=== PATIENT | female | born 1950 | race African-American/Black ===

== ENCOUNTER 2020-04-15 23:22 | Emergency (ER) | payer MEDICARE ==
[~2020-04-15] VITALS: Ht 165.1 cm; Wt 90.7 kg
[~2020-04-15 23:22] MED LIST: CITALOPRAM HBR40 MG PO; LEVOTHYROXINE75 MCG PO; LOSARTAN-HCTZ1 EAC2 PO; NEXIUM40 M1 PO; ZOLPIDEM TARTRA10 MG PO
[2020-04-16] MEDS ORDERED: ONDANSETRON HCL 4 MG ORAL DISINTEGRATING TAB PO ONE (00:15)
== END 2020-04-16 00:37 | disposition home or self-care (01) ==
LOC: ER 04-16 00:20
DX: M79.622 Pain in left upper arm (principal); T50.B95A Adverse effect of other viral vaccines, initial encounter; I10 Essential (primary) hypertension; E03.9 Hypothyroidism, unspecified
CPT/HCPCS: 99283; Q0162

== ENCOUNTER 2020-09-18 21:23 | Emergency (ER) | payer MEDICARE ==
[~2020-09-18] VITALS: Ht 165.1 cm; Wt 90.7 kg
[2020-09-18] MEDS ORDERED: DEXAMETHASONE SOD PHOS 10 MG/1 ML VIAL IV ONE (22:15)
[2020-09-18] MEDS ORDERED: GUAIFENESIN/DEXTROMETHORPHAN LIQD 5 ML UDC PO PRN (22:15)
[2020-09-18 22:19] LABS: BASOPHILS # (AUTO) 0.1 (0.0-0.1); BASOPHILS % 0.8 % (0.0-1.0); EOSINOPHILS # (AUTO) 1.1 (0.0-0.4); EOSINOPHILS % 9.3 % (0.0-6.0); HEMATOCRIT 36.8 % (34.2-44.1); HEMOGLOBIN 11.5 g/dL (12.0-16.0); LYMPHOCYTES # (AUTO) 2.8 (1.0-3.2); LYMPHOCYTES % 24.7 % (18.0-39.1); MEAN CORPUSCULAR HEMOGLOBIN 27.1 pg (28-32); MEAN CORPUSCULAR HGB CONC 31.3 g/dL (31-35); MEAN CORPUSCULAR VOLUME 86.6 fL (81-99); MONOCYTES # (AUTO) 0.6 (0.2-0.8); MONOCYTES % 5.7 % (4.4-11.3); NEUTROPHILS # (AUTO) 6.7 (2.1-6.9); NEUTROPHILS % 59.1 % (38.7-80.0); PLATELET COUNT 289 x10e3/uL (140-360); RED BLOOD COUNT 4.25 x10e6/uL (3.6-5.1); RED CELL DISTRIBUTION WIDTH 13.3 % (11.7-14.4)
[2020-09-18 22:33] LABS: ALANINE AMINOTRANSFERASE 10 IU/L (0-55); ALBUMIN 3.9 g/dL (3.5-5.0); ALBUMIN/GLOBULIN RATIO 1.2 (0.8-2.0); ALKALINE PHOSPHATASE 68 IU/L (40-150); ANION GAP 13.8 mmol/L (8-16); BLOOD UREA NITROGEN 16 mg/dL (7-26); BUN/CREATININE RATIO 16 (6-25); CALCIUM 8.8 mg/dL (8.4-10.2); CARBON DIOXIDE 26 mmol/L (22-29); CHLORIDE 102 mmol/L (98-107); CREATINE KINASE 74 IU/L (29-168); EST GLOMERULAR FILTRATION RATE > 60 ML/MIN (60-); GLUCOSE 99 mg/dL (74-118); POTASSIUM 3.8 mmol/L (3.5-5.1); SODIUM 138 mmol/L (136-145)
[2020-09-19] MEDS ORDERED: SODIUM CHLORIDE 0.9% 50ML 50 ML ONE (02:38)
[2020-09-19] MEDS ORDERED: IOPAMIDOL 370 MG/ML 200 ML INFUS..BTL INJ ONE (02:38)
[2020-09-19] MEDS ORDERED: TESSALON PERLE100 MG PO (04:59)
[2020-09-19] MEDS ORDERED: AZITHROMYCIN250 MG PO (04:59)
[2020-09-19] MEDS ORDERED: PREDNISONE20 MG PO (04:59)
[2020-09-19 05:23] VITALS: BP 170/86
== END 2020-09-19 05:15 | disposition home or self-care (01) ==
LOC: ER 21:45
DX: J40 Bronchitis, not specified as acute or chronic (principal); R05 Cough; R06.02 Shortness of breath; I10 Essential (primary) hypertension; E03.9 Hypothyroidism, unspecified
CPT/HCPCS: 36415; 71045; 71260; 80053; 82550; 82553; 83880; 84484; 85025; 93005; 99284; J1100; Q9967

== ENCOUNTER 2022-10-21 20:09 | Inpatient (IN) | payer MEDICARE ==
[~2022-10-21] VITALS: Ht 165.1 cm; Wt 89.0 kg
[~2022-10-21 20:09] MED LIST changes: +AZITHROMYCIN250 MG PO; +PREDNISONE20 MG PO; +TESSALON PERLE100 MG PO
[2022-10-21] MEDS ORDERED: ONDANSETRON HCL INJ 2MG/ML 2ML 2 MG/ML VIAL IV STA (20:41)
[2022-10-21] MEDS ORDERED: SODIUM CHLORIDE 0.9% 1000ML 1,000 ML IV ONE (20:45)
[2022-10-21 20:59] LABS: BASOPHILS # (AUTO) 0.1 (0.0-0.1); BASOPHILS % 0.4 % (0.0-1.0); EOSINOPHILS % 0.1 % (0.0-6.0); HEMOGLOBIN 11.1 g/dL (12.0-16.0); LYMPHOCYTES # (AUTO) 0.8 (1.0-3.2); LYMPHOCYTES % 4.5 % (18.0-39.1); MEAN CORPUSCULAR HEMOGLOBIN 26.9 pg (28-32); MEAN CORPUSCULAR HGB CONC 32.6 g/dL (31-35); MEAN CORPUSCULAR VOLUME 82.5 fL (81-99); MONOCYTES # (AUTO) 0.8 (0.2-0.8); MONOCYTES % 4.2 % (4.4-11.3); NEUTROPHILS # (AUTO) 16.1 (2.1-6.9); PLATELET COUNT 247 x10e3/uL (140-360); RED BLOOD COUNT 4.12 x10e6/uL (3.6-5.1); RED CELL DISTRIBUTION WIDTH 13.4 % (11.7-14.4)
[2022-10-21 21:14] LABS: ALANINE AMINOTRANSFERASE 24 IU/L (0-55); ALBUMIN/GLOBULIN RATIO 0.8 (0.8-2.0); ALKALINE PHOSPHATASE 111 IU/L (40-150); ANION GAP 17.6 mmol/L (8-16); BLOOD UREA NITROGEN 22 mg/dL (7-26); BUN/CREATININE RATIO 14 (6-25); CALCIUM 9.1 mg/dL (8.4-10.2); CARBON DIOXIDE 22 mmol/L (22-29); CHLORIDE 97 mmol/L (98-107); CREATINE KINASE 58 IU/L (29-168); CREATININE, SERUM 1.56 mg/dL (0.57-1.11); GLUCOSE 116 mg/dL (74-118); POTASSIUM 3.6 mmol/L (3.5-5.1); SODIUM 133 mmol/L (136-145)
[2022-10-21 21:21] LABS: CLARITY,URINE CLOUDY (CLEAR); COLOR,URINE YELLOW (YELLOW); KETONES,URINE 1+ (NEGATIVE); LEUKOCYTE ESTERASE ,URINE MODERATE (NEGATIVE); NITRITE,URINE NEGATIVE (NEGATIVE); PROTEIN,URINE DIPSTICK >=300 (NEGATIVE); URINE UROBILINOGEN 1 mg/dL (0.2 - 1)
[2022-10-21 21:32] LABS: WBC,URINE (MAN) >50 /HPF (0-5)
[2022-10-21 21:33] LABS: BACTERIA,URINE MANY /HPF; EPITHELIAL CELLS,URINE MANY /LPF; RBC,URINE >50 /HPF (0-5)
[2022-10-21] MEDS ORDERED: ACETAMINOPHEN 325 MG TAB PO ONE (22:00)
[2022-10-21] MEDS ORDERED: ONDANSETRON HCL INJ 2MG/ML 2ML 2 MG/ML VIAL IV PRN (23:00)
[2022-10-21] MEDS: SODIUM CHLORIDE 0.9% 1000ML 1,000 ML IV SCH (23:33)
[2022-10-22 05:23] LABS: BASOPHILS # (AUTO) 0.1 (0.0-0.1); BASOPHILS % 0.5 % (0.0-1.0); EOSINOPHILS # (AUTO) 0.1 (0.0-0.4); HEMOGLOBIN 9.1 g/dL (12.0-16.0); LYMPHOCYTES # (AUTO) 0.8 (1.0-3.2); LYMPHOCYTES % 5.9 % (18.0-39.1); MEAN CORPUSCULAR HEMOGLOBIN 27.1 pg (28-32); MEAN CORPUSCULAR HGB CONC 32.5 g/dL (31-35); MEAN CORPUSCULAR VOLUME 83.3 fL (81-99); MONOCYTES # (AUTO) 0.8 (0.2-0.8); NEUTROPHILS # (AUTO) 10.8 (2.1-6.9); NEUTROPHILS % 85.2 % (38.7-80.0); PLATELET COUNT 170 x10e3/uL (140-360); RED BLOOD COUNT 3.36 x10e6/uL (3.6-5.1); RED CELL DISTRIBUTION WIDTH 13.6 % (11.7-14.4)
[2022-10-22 05:40] LABS: ALBUMIN 2.2 g/dL (3.5-5.0); ALBUMIN/GLOBULIN RATIO 0.8 (0.8-2.0); ANION GAP 12.7 mmol/L (8-16); CALCIUM 7.8 mg/dL (8.4-10.2); CREATININE, SERUM 1.42 mg/dL (0.57-1.11); POTASSIUM 3.7 mmol/L (3.5-5.1)
[2022-10-22] MEDS: SODIUM CHLORIDE 0.9% 1000ML 1,000 ML IV SCH ×3 (08:13→19:30)
[2022-10-22] MEDS: HYDROCHLOROTHIAZIDE 25 MG TAB PO SCH (12:18)
[2022-10-22] MEDS: LOSARTAN POTASSIUM 100 MG TAB PO SCH (12:18)
[2022-10-22] MEDS: ENOXAPARIN SOD INJ 40 MG/0.4 ML SYR SC SCH (12:20)
[2022-10-22] MEDS: ACETAMINOPHEN 325 MG TAB PO PRN ×2 (12:27→19:56)
[2022-10-22] MEDS ORDERED: ALBUTEROL SULFATE HFA 8GM INHALATION AEROSOL INH PRN (12:45)
[2022-10-22 14:30] VITALS: BP 139/75
[2022-10-22] MEDS ORDERED: DIOVAN160 MG PO (14:54)
[2022-10-22 15:00] VITALS: BP 139/75
[2022-10-22 16:43] VITALS: BP 119/59
[2022-10-22 20:00] VITALS: BP 119/87
[2022-10-22 21:00] VITALS: BP 119/87
[2022-10-23] VITALS (7 sets, daily range): BP systolic 123–156; BP diastolic 63–87
[2022-10-23] MEDS: LEVOTHYROXINE SODIUM 75 MCG TAB PO SCH (06:06)
[2022-10-23 06:10] LABS: BASOPHILS # (AUTO) 0.1 (0.0-0.1); EOSINOPHILS # (AUTO) 0.2 (0.0-0.4); EOSINOPHILS % 2.1 % (0.0-6.0); HEMATOCRIT 31.2 % (34.2-44.1); HEMOGLOBIN 9.7 g/dL (12.0-16.0); LYMPHOCYTES # (AUTO) 1.1 (1.0-3.2); LYMPHOCYTES % 13.9 % (18.0-39.1); MEAN CORPUSCULAR HEMOGLOBIN 26.4 pg (28-32); MEAN CORPUSCULAR HGB CONC 31.1 g/dL (31-35); MONOCYTES # (AUTO) 0.5 (0.2-0.8); MONOCYTES % 6.2 % (4.4-11.3); NEUTROPHILS # (AUTO) 6.2 (2.1-6.9); PLATELET COUNT 234 x10e3/uL (140-360); RED BLOOD COUNT 3.67 x10e6/uL (3.6-5.1); RED CELL DISTRIBUTION WIDTH 13.7 % (11.7-14.4)
[2022-10-23 06:42] LABS: ANION GAP 12.4 mmol/L (8-16); CALCIUM 8.3 mg/dL (8.4-10.2); CREATININE, SERUM 1.47 mg/dL (0.57-1.11); POTASSIUM 3.4 mmol/L (3.5-5.1)
[2022-10-23] MEDS: SODIUM CHLORIDE 0.9% 1000ML 1,000 ML IV SCH ×3 (07:00→21:09)
[2022-10-23] MEDS ORDERED: POTASSIUM CHLORIDE 20 MEQ TAB CR PO ONE (08:10)
[2022-10-23] MEDS: ENOXAPARIN SOD INJ 40 MG/0.4 ML SYR SC SCH (08:51)
[2022-10-23] MEDS: HYDROCHLOROTHIAZIDE 25 MG TAB PO SCH (08:51)
[2022-10-23] MEDS: SENNA-S TABLET PO SCH (08:51)
[2022-10-23] MEDS: LOSARTAN POTASSIUM 100 MG TAB PO SCH (08:52)
[2022-10-23] MEDS ORDERED: NON-FORMULARY MEDICATION (Losartan/Hydrochlorothiazide (Losartan-Hctz 100-12.5 Mg Tab) 1 T PO SCH (09:00)
[2022-10-23] MEDS: ACETAMINOPHEN 325 MG TAB PO PRN (21:08)
[2022-10-24 00:54] VITALS: BP 179/77
[2022-10-24 01:19] VITALS: BP 179/77
[2022-10-24 05:04] VITALS: BP 151/83
[2022-10-24] MEDS: SODIUM CHLORIDE 0.9% 1000ML 1,000 ML IV SCH (06:21)
[2022-10-24] MEDS: LEVOTHYROXINE SODIUM 75 MCG TAB PO SCH (06:21)
[2022-10-24 06:23] LABS: BASOPHILS % 0.6 % (0.0-1.0); EOSINOPHILS # (AUTO) 0.3 (0.0-0.4); EOSINOPHILS % 5.2 % (0.0-6.0); HEMATOCRIT 28.2 % (34.2-44.1); HEMOGLOBIN 9.1 g/dL (12.0-16.0); LYMPHOCYTES # (AUTO) 1.4 (1.0-3.2); LYMPHOCYTES % 21.9 % (18.0-39.1); MEAN CORPUSCULAR HEMOGLOBIN 26.8 pg (28-32); MEAN CORPUSCULAR HGB CONC 32.3 g/dL (31-35); MEAN CORPUSCULAR VOLUME 82.9 fL (81-99); MONOCYTES # (AUTO) 0.6 (0.2-0.8); MONOCYTES % 9.2 % (4.4-11.3); NEUTROPHILS # (AUTO) 3.8 (2.1-6.9); NEUTROPHILS % 61.3 % (38.7-80.0); PLATELET COUNT 217 x10e3/uL (140-360); RED CELL DISTRIBUTION WIDTH 13.9 % (11.7-14.4)
[2022-10-24 06:42] LABS: ANION GAP 9.6 mmol/L (8-16); CALCIUM 8.1 mg/dL (8.4-10.2); CREATININE, SERUM 1.05 mg/dL (0.57-1.11); POTASSIUM 3.6 mmol/L (3.5-5.1)
[2022-10-24 08:13] VITALS: BP 157/83
[2022-10-24 08:30] VITALS: BP 157/83
[2022-10-24] MEDS: SENNA-S TABLET PO SCH (09:00)
[2022-10-24] MEDS: ENOXAPARIN SOD INJ 40 MG/0.4 ML SYR SC SCH (09:00)
[2022-10-24] MEDS: HYDROCHLOROTHIAZIDE 25 MG TAB PO SCH (09:33)
[2022-10-24] MEDS: LOSARTAN POTASSIUM 100 MG TAB PO SCH (09:34)
[2022-10-24] MEDS ORDERED: ONDANSETRON HCL 4 MG ORAL DISINTEGRATING TAB PO PRN (11:30)
[2022-10-24] MEDS ORDERED: CIPRO500 MG PO (11:31)
== END 2022-10-24 11:39 | disposition home or self-care (01) | DRG 872 ==
LOC: ER 20:18 → ERHOLD 22:56 → MED/SURG3 10-22 14:05 → OBSVTOIN 10-23 12:32
PROVIDERS: ADMIT Family Medicine Adult Medicine; ATTEND Family Medicine Adult Medicine
DX: A41.9 Sepsis, unspecified organism (principal); N12 Tubulo-interstitial nephritis, not specified as acute or chronic; N17.9 Acute kidney failure, unspecified; E66.09 Other obesity due to excess calories; Z68.32 Body mass index [BMI] 32.0-32.9, adult; Z20.822 Contact with and (suspected) exposure to COVID-19; E03.9 Hypothyroidism, unspecified
CPT/HCPCS: 0223U; 36415; 51798; 71045; 74176; 80048; 80053; 81001; 82550; 82553; 83605; 83690; 84484; 85025; 87040; 87086; 87186; 93005; 94799; 96361; 99284; G0378; J0696; J1650; J2405; J7030

== ENCOUNTER 2024-06-23 18:50 | Emergency (ER) | payer MEDICARE ==
[~2024-06-23] VITALS: Ht 165.1 cm; Wt 88.9 kg
[~2024-06-23 18:50] MED LIST changes: +CIPRO500 MG PO; +DIOVAN160 MG PO
[2024-06-23 19:53] LABS: CORONAVIRUS COVID-19 AG NEGATIVE (NEGATIVE); INFLUENZA A AG NEGATIVE (NEGATIVE); INFLUENZA B AG NEGATIVE (NEGATIVE)
[2024-06-23] MEDS ORDERED: BENZONATATE200 MG PO (20:20)
[2024-06-23] MEDS ORDERED: MEDROL4 M2 PO (20:20)
[2024-06-23] MEDS: DEXAMETHASONE SOD PHOS 10 MG/1 ML VIAL IM ONE (20:33)
[2024-06-23 21:20] VITALS: PULSE 74; RESP 18; TEMP 98.6
[2024-06-23 22:00] VITALS: BP 131/62; PULSE 71; RESP 18; TEMP 98.2; O2SAT 98
== END 2024-06-23 21:00 | disposition home or self-care (01) ==
LOC: ER 19:12
DX: R05.9 Cough, unspecified (principal); T78.40XA Allergy, unspecified, initial encounter; I10 Essential (primary) hypertension; E03.9 Hypothyroidism, unspecified; F32.A Depression, unspecified; Z11.52 Encounter for screening for COVID-19
CPT/HCPCS: 71045; 87428; 99284; J1100